=== PATIENT | male | born 1965 | race Caucasian/White ===

== ENCOUNTER 2019-06-07 12:21 | Inpatient (IN) | payer OTHER ==
[~2019-06-07] VITALS: Ht 175.3 cm; Wt 86.2 kg
--- NOTE | 2019-06-07 12:45 | NUR ---
DROPPED OFF BY FRIEND ACROSS THE STREET. 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 IT'S ON AND OFF. SOMETIMES IT GETS BETTER". TO ER BED 9, HOOKED TO MONITOR, CHANGED TO LSADE GOWDeedee, PROVIDED W WARM BLANKET, AWAITING MD VALERIO.
[2019-06-07 13:24] LABS: BASOPHILS # (AUTO) 0.1 /CMM (0.0-0.2); EOSINOPHILS % (AUTO) 1.2 % (0.0-6.0); HEMATOCRIT 45 % (39-51); HEMOGLOBIN 14.5 g/dL (13.5-17.5); LYMPHOCYTES # (AUTO) 1.8 /CMM (0.8-4.8); LYMPHOCYTES % (AUTO) 26.8 % (20.0-44.0); MEAN CORPUSCULAR HGB CONC 32 g/dl (31.0-36.0); MEAN CORPUSCULAR VOLUME 93 fL (80-96); MONOCYTES # (AUTO) 0.7 /CMM (0.1-1.30); MONOCYTES % (AUTO) 11.2 % (2.0-12.0); NEUTROPHILS % (AUTO) 59.8 % (43.0-81.0); PLATELET COUNT (AUTO) 214 /CMM (150-450); RED BLOOD CELL COUNT(AUTO) 4.81 MIL/uL (4.5-6.0); WHITE BLOOD COUNT (AUTO) 6.6 K/uL (4.3-11.0)
[2019-06-07] MEDS ORDERED: LISI-603 PO (13:28)
[2019-06-07] MEDS ORDERED: CARV6.252 PO (13:28)
[2019-06-07] MEDS ORDERED: FURO20TA4 PO (13:28)
[2019-06-07] MEDS ORDERED: ASPI-605 PO (13:28)
[2019-06-07] MEDS ORDERED: ACET-907 PO (13:28)
[2019-06-07] MEDS ORDERED: POTA10CA43 PO (13:28)
[2019-06-07] MEDS ORDERED: VANCOMYCIN 1 GM in IV D5W 250 ML IV ONE (13:30)
[2019-06-07] MEDS ORDERED: PIPERACILLIN /TAZOBACTAM 3.375 G in IV D5W 50 ML IV ONE (13:30)
[2019-06-07 13:32] LABS: CALCIUM, SERUM 8.1 mg/dL (8.5-10.1); CARBON DIOXIDE 26 mmol/L (21-32); CHLORIDE 96 mmol/L (98-107); CREATININE 1.8 mg/dL (0.6-1.3); GLUCOSE 82 mg/dL (74-106); POTASSIUM 4.1 mmol/L (3.5-5.1); SODIUM SERUM 131 mmol/L (136-145); UREA NITROGEN, BLOOD 21 mg/dL (7-18)
[2019-06-07 13:46] LABS: ALANINE AMINOTRANSFERASE 26 U/L (12-78); ALBUMIN 2.6 g/dL (3.4-5.0); ALKALINE PHOSPHATASE 147 U/L (46-116); ASPARTATE AMINOTRANSFERASE 33 U/L (15-37); B-TYPE NATRIURETIC PEPTIDE 4188 PG/ML (0-125); BILIRUBIN,DIRECT 0.8 mg/dL (0.0-0.2); BILIRUBIN,TOTAL 1.3 mg/dL (0.2-1.0); TOTAL PROTEIN, SERUM 7.3 g/dL (6.4-8.2)
[2019-06-07] MEDS ORDERED: PIPERACILLIN /TAZOBACTAM 3.375 G VIAL IV ONE (13:46)
[2019-06-07] MEDS ORDERED: VANCOMYCIN 1 GM VIAL ONE (13:46)
--- NOTE | 2019-06-07 14:08 | NUR ---
CALLED [facility], SUBMITTED MOVE SHEET TO ADMITTING, AND CALLED FOR TELE BED.
--- NOTE | 2019-06-07 14:36 | NUR ---
BED ASSIGNED TO 315-1.
--- NOTE | 2019-06-07 15:31 | NUR ---
REPORT GIVEN TO RUDOLPH FIGUEROA
[2019-06-07] MEDS ORDERED: HYDROCODONE/APAP 5/325MG 1 EACH TABLET PO PRN (16:00)
[2019-06-07] MEDS ORDERED: MAG HYDROX/AL HYDROX/SIMETH 30 ML UDC PO PRN (16:00)
[2019-06-07] MEDS ORDERED: MAGNESIUM HYDROXIDE 30 ML UDC PO PRN (16:00)
[2019-06-07] MEDS ORDERED: ONDANSETRON HCL/PF 4 MG/2 ML VIAL IVP PRN (16:00)
[2019-06-07] MEDS ORDERED: ZOLPIDEM TARTRATE 5 MG TABLET PO PRN (16:00)
[2019-06-07] MEDS ORDERED: FEE PK DOSING 1 MIN EA MC ONE (17:34)
--- NOTE | 2019-06-07 17:48 | NUR ---
TRANSFERRED TO TELE UNIT BY RN AND TECH
[2019-06-07 18:20] VITALS: BP 108/75
[2019-06-07] MEDS: MORPHINE SULFATE INJ 2 MG/ML DISP.SYRIN IV PRN ×2 (18:20→18:21)
--- NOTE | 2019-06-07 18:20 | NUR ---
EMPLOYEE REPRESENTATIVE OPENING NOTES RECEIVED PATIENT VIA GURNEY, ALERT AND ORIENTED X4. HOB ELEVATED, NO SOB. C/O PAIN TO BLE. LEFT AC # 20 INTACT AND PATENT. ORDERS RECEIVED FROM YONIS STEARNS CARRIED OUT. ON TELE MONITORING SINUS TACH WITH PVC HR: 100, B/P 108/75, RR: 22 SPO2 98% IN ROOM AIR T: 98.4. ORIENTED PATIENT TO ROOM, UNIT AND CALL LIGHT. BED IN LOWEST POSITION, LOCKED. BED ALARM ON. CALL LIGHT WITHIN REACH. IN NO APPARENT DISTRESS AT THIS TIME. ENDORSED TO ONCOMING SHIFT.
--- NOTE | 2019-06-07 18:21 | NUR ---
MS RN NOTES C/O PAIN MORPHINE DRAWN UP, BUT PATIENT CHANGED HIS MIND. MEDICATION NOT GIVEN AND WASTED MEDICATION.
[2019-06-07] MEDS: ACETAMINOPHEN 325 MG TABLET PO PRN (18:29)
[2019-06-07] MEDS: FUROSEMIDE 40 MG/4 ML VIAL IV SCH (18:29)
[2019-06-07] MEDS: CARVEDILOL 6.25 MG TABLET PO SCH (18:30)
--- NOTE | 2019-06-07 19:34 | NUR ---
COMPRESSOR STATIONS SUPERINTENDENT OPENING NOTE RECEIVED PATIENT IN BED. A/O X4. CURRENTLY TOLERATING ROOM AIR. RESPIRATIONS ARE EVEN AND UNLABORED. NO S/S SOB NOTED. DENIES PAIN AT THIS TIME. EXTERNAL TELE MONITOR READS ST WITH FREQUENT PVC HR 105. IN NO APPARENT DISTRESS. IV ACCESS IN LAC#20 PATENT AND SALINE LOCKED. BED IS LOW AND LOCKED, HOB ELEVATED IN SEMI FOWLERS, SIDE RIALS UP X2. CALL LIGHT WITHIN REACH. WILL CONTINUE TO MONITOR.
[2019-06-07 20:00] VITALS: BP 103/80
[2019-06-07] MEDS: PIPERACILLIN /TAZOBACTAM 2.25 G in IV D5W 50 ML IV SCH (20:05)
[2019-06-07] MEDS ORDERED: HEPARIN SODIUM, PORCINE 5000 UNITS/1 ML VIAL SQ SCH (21:00)
[2019-06-07] MEDS ORDERED: CHOL200026 PO (22:38)
[2019-06-07] MEDS ORDERED: POTA-10 PO (22:57)
[2019-06-07] MEDS ORDERED: SULF1TAB48 PO (22:57)
[2019-06-07] MEDS ORDERED: FURO40TA5 PO (22:57)
[2019-06-07] MEDS ORDERED: ATOR40TA PO (22:57)
[2019-06-07] MEDS ORDERED: TRAM50TA2 PO (22:57)
[2019-06-07] MEDS ORDERED: BICT1TAB PO (22:57)
[2019-06-07] MEDS ORDERED: SIMV-46 PO (22:57)
[2019-06-07] MEDS ORDERED: IBUP-1955 PO (22:57)
[2019-06-07] MEDS ORDERED: DIAZ5TAB4 PO (22:57)
[2019-06-07] MEDS ORDERED: cla (22:58)
[2019-06-07] MEDS ORDERED: RIFA550T PO (22:58)
[2019-06-07] MEDS ORDERED: CALC200T29 PO (22:58)
[2019-06-08] VITALS: BP 119/51
[2019-06-08] MEDS: ACETAMINOPHEN 325 MG TABLET PO PRN (00:44)
--- NOTE | 2019-06-08 00:44 | NUR ---
LINING PRESSER NOTE ADMINISTERED PRN TYLENOL 650MG FOR PAIN IN BOTH FEET. WILL CONTINUE TO MONITOR.
[2019-06-08] MEDS: PIPERACILLIN /TAZOBACTAM 2.25 G in IV D5W 50 ML IV SCH ×2 (01:20→08:15)
[2019-06-08] MEDS ORDERED: VANCOMYCIN 1 GM in IV D5W 250 ML IV SCH (02:00)
--- NOTE | 2019-06-08 02:53 | NUR ---
TRANSFER SPECIALIST NOTE ADMINISTERED PRN NORCO 5/325 FOR PAIN 5/10 IN BILATERAL LOWER EXTREMITIES. WILL CONTINUE TO MONITOR.
[2019-06-08 04:00] VITALS: BP 109/47
[2019-06-08 04:48] VITALS: BP 109/47
--- NOTE | 2019-06-08 06:10 | NUR ---
TUFTING MACHINE FIXER CLOSING NOTE PATIENT IN BED. A/O X4. REMAINS TOLERATING ROOM AIR. RESPIRATIONS ARE EVEN AND UNLABORED. NO SOB NOTED. MANAGED PAIN WITH TYLENOL 650MG AND NORCO 5/325. EXTERNAL TELE MONITOR READS SR WITH PVC HR 95. NO APPARENT DISTRESS. IV ACCESS MAINTAINED IN LAC#20 PATENT AND SALINE LOCKED. BED IS LOW AND LOCKED, HOB FLAT, SIDE RIALS UP X2. CALL LIGHT WITHIN REACH. WILL ENDORSE TO NEXT SHIFT.
[2019-06-08 07:19] LABS: BASOPHILS # (AUTO) 0.1 /CMM (0.0-0.2); BASOPHILS % (AUTO) 0.9 % (0.0-2.0); EOSINOPHILS % (AUTO) 1.1 % (0.0-6.0); HEMATOCRIT 40 % (39-51); HEMOGLOBIN 12.9 g/dL (13.5-17.5); LYMPHOCYTES # (AUTO) 2.1 /CMM (0.8-4.8); LYMPHOCYTES % (AUTO) 31.2 % (20.0-44.0); MEAN CORPUSCULAR HGB CONC 33 g/dl (31.0-36.0); MEAN CORPUSCULAR VOLUME 92 fL (80-96); MONOCYTES # (AUTO) 0.8 /CMM (0.1-1.30); MONOCYTES % (AUTO) 11.5 % (2.0-12.0); NEUTROPHILS # (AUTO) 3.7 /CMM (1.8-8.9); NEUTROPHILS % (AUTO) 55.3 % (43.0-81.0); PLATELET COUNT (AUTO) 211 /CMM (150-450); WHITE BLOOD COUNT (AUTO) 6.7 K/uL (4.3-11.0)
--- NOTE | 2019-06-08 07:30 | NUR ---
MS/RN Opening note Patient received resting in bed, A/O x4n showing no signs of acute distress or SOB, saturating >95% on RA. IV line is clean and patent. Skin assessed, BLE edema and LLE blister noted. Urinal has 350cc with clear yellow urine. I asked the patient if he was in pain and he stated he was in pain in his feet and I offered the patient if he wanted any pain medication and he stated that he does not want to take anything for pain due to a history of substance abuse and that he will be okay. Patient has no other concerns at this time. Bed is in lowest position, side rails x3 in upright position, call light is within reach and patient is aware of how to call for assistance when needed. Will continue with plan of care.
[2019-06-08 07:38] LABS: ALBUMIN 2.3 g/dL (3.4-5.0); BILIRUBIN,TOTAL 1.6 mg/dL (0.2-1.0); CALCIUM, SERUM 7.9 mg/dL (8.5-10.1); CREATININE 1.5 mg/dL (0.6-1.3); MAGNESIUM 1.8 mg/dL (1.8-2.4); PHOSPHORUS 3.2 mg/dL (2.5-4.9); POTASSIUM 3.9 mmol/L (3.5-5.1); TOTAL PROTEIN, SERUM 6.3 g/dL (6.4-8.2)
[2019-06-08] MEDS: FUROSEMIDE 40 MG/4 ML VIAL IV SCH ×2 (08:16→12:22)
[2019-06-08] MEDS ORDERED: ENOXAPARIN SODIUM 40 MG/0.4 ML DISP.SYRIN SQ SCH (09:00)
[2019-06-08] MEDS ORDERED: ASPIRIN EC 81 MG TABLET.DR PO SCH (09:00)
[2019-06-08] MEDS ORDERED: LISINOPRIL (20MG) 20 MG TABLET PO SCH (09:00)
[2019-06-08 09:22] VITALS: BP 106/72
[2019-06-08] MEDS: CARVEDILOL 6.25 MG TABLET PO SCH (09:22)
--- NOTE | 2019-06-08 10:00 | NUR ---
MS/RN note Patient asked if he can be DC after his wound care consult. I told the patient that he is not stable to leave and it is up to the doctor to decide if he can be DC. I asked the patient why he wants to be DC and he stated that, "I missed [address] and I am scared that I am going to go to care home." Patient appears very anxious. I contacted the doctor and MD said, "patient is not stable for DC, he needs wound treatment and antibiotics." I relayed the information to the patient and and he still insisted on leaving. I told him, the risks and that it is his choice if he wants to leave against medical advice. RN Yane also came into the room and explained to the patient a second time the risks of leaving. Patient stated he still wants to leave. I told the patient that I will get the paperwork ready.
--- NOTE | 2019-06-08 11:01 | NUR ---
WOUND CARE CONSULT: PT PRESENTS WITH CRUSTED WOUND TO LEFT DORSAL FOOT, PRESENT ON ADMISSION. RECOMMEND DPM CONSULT. DR LIAO NOTIFIED OF CONSULT REQUEST. CURRENT DAGO SCORE IS 19. MD IN AGREEMENT WITH PLAN OF CARE.
--- NOTE | 2019-06-08 14:00 | NUR ---
MS/RN note Patient signed AMA paperwork, belongings list signed, home meds picked up from pharmacy and given to patient. All belongings with patient.
--- NOTE | 2019-06-08 14:40 | NUR ---
MS/RN note Patient left the unit ambulatory, refused to take wheelchair after being offered. Patient stated, "that wheelchair came from the AIDS clinic across the street, it's not mine." We insisted the patient take it with him, patient refused. Patient refused to wear shoes or socks after being offered both. MEDICAL TRANSCRIPTION EDITOR and I escorted the patient down the elevator. Patient got into a taxi. Once we went back to the room, we found the patient's shoes, debit card, blanket, and wheelchair that he got from the AIDS clinic. Called the patient back on his cellphone and he stated his partner will come to pick it up.
--- NOTE | 2019-06-08 15:30 | NUR ---
MS/RN note Patient's partner Paresh came to picker patient's debit card, shoes, blanket and wheelchair. Partner stated, "Doug has been in and out of the hospital for the past 6 months, he is so stubborn and gets very anxious. Thank you for taking care of him while he is here, He will probably be back." Partner was also sent with a copy of the AMA form.
[2019-06-09] MEDS ORDERED: SILVER SULFADIAZINE 50 GM JAR TP SCH (09:00)
== END 2019-06-08 14:40 | disposition left against medical advice (07) | DRG 139 ==
LOC: ER 12:21 → TELE 17:18 → MED 06-08 10:19
PROVIDERS: ADMIT Nurse Practitioner Acute Care; ATTEND Nurse Practitioner Acute Care
DX: J15.9 Unspecified bacterial pneumonia (principal); N17.0 Acute kidney failure with tubular necrosis; I50.31 Acute diastolic (congestive) heart failure; E44.0 Moderate protein-calorie malnutrition; E87.2 Acidosis; L03.116 Cellulitis of left lower limb; E87.1 Hypo-osmolality and hyponatremia; E88.09 Other disorders of plasma-protein metabolism, not elsewhere classified; I42.0 Dilated cardiomyopathy; F17.210 Nicotine dependence, cigarettes, uncomplicated; S90.822A Blister (nonthermal), left foot, initial encounter; X58.XXXA Exposure to other specified factors, initial encounter; Y93.9 Activity, unspecified; Y92.009 Unspecified place in unspecified non-institutional (private) residence as the place of occurrence of the external cause; E80.6 Other disorders of bilirubin metabolism; I25.2 Old myocardial infarction
CPT/HCPCS: 36415; 71045-TC; 80048-TC; 80053-TC; 80061-TC; 80076-TC; 83605-TC; 83735-TC; 83880; 84100-TC; 84484-TC; 85025-TC; 87040-TC; 87081-TC; 93307-TC; 93926-TC; 93970-TC; 97116-TC; 97530-TC; G0378; J1644; J1650; J1940; J2270; J2543; J3370; J7050; J7060

== ENCOUNTER 2019-09-03 14:34 | Emergency (ER) | payer OTHER ==
[~2019-09-03] VITALS: Ht 182.9 cm; Wt 59.0 kg
[~2019-09-03 14:34] MED LIST: ACET-907 PO; ASPI-605 PO; ATOR40TA PO; BICT1TAB PO; CALC200T29 PO; CARV6.252 PO; CHOL200026 PO; DIAZ5TAB4 PO; FURO20TA4 PO; FURO40TA5 PO; IBUP-1955 PO; LISI-603 PO; POTA-10 PO; POTA10CA43 PO; RIFA550T PO; SIMV-46 PO; SULF1TAB48 PO; TRAM50TA2 PO; cla
--- NOTE | 2019-09-03 14:34 | NUR ---
AT 1430 FAMILY CALLED STAFF IN ER ADMITTING. STAFF WENT OUTSIDE AND FOUND PATIENT UNRESPONSIVE AND PULSELESS TRANSFERRED TO A BED AND CPR STARTED. CALLED CODE BLUE. PATIENT WITH NO PULSE, NO BLOOD PRESSURE, NO SPONTANEOUS BREATHING. IO 25mm INSERTED BY JEET LORENZO RN ON RIGHT LOWER EXTREMITY. PACER PADS ATTACHED TO PATIENT.
--- NOTE | 2019-09-03 14:38 | NUR ---
IV LINE INSERTED ON NATASHA G18.
--- NOTE | 2019-09-03 14:43 | NUR ---
INTUBATED WITH ET TUBE SIZE OF 7.5, 23CM ON THE LIP. CARLOS. CHEST RISE.
--- NOTE | 2019-09-03 14:44 | NUR ---
DR. MELVIN VILLEGAS AT BEDSIDE, INSERTED A CENTRAL LINE ON RIGHT FEMORAL.
--- NOTE | 2019-09-03 14:50 | NUR ---
PATIENT SHOCKED 3 TIMES, NO ROSC. PATIENT WAS V. FIB ON THE MONITOR. CONTINUED WITH MEDICATIONS AND THE CPR.
--- NOTE | 2019-09-03 14:55 | NUR ---
CODE WAS UNSUCCESSFUL. UNABLE TO OBTAIN A PULSE, DR. FAUSTIN ANNOUNCED TIME OF 1455. FAMILY WAS IN THE WAITING ROOM AND SPOKE TO DR. FAUSTIN.
[2019-09-03 14:56] VITALS: BP 0/0
--- NOTE | 2019-09-03 15:53 | NUR ---
CALLED [facility], SPOKE TO VICENTA REFERRAL NUMBER: [phone]
--- NOTE | 2019-09-03 16:00 | NUR ---
FOR MEDICATIONS ADMINISTERED DURING THE CODE, REFER TO THE CODE BLUE SHEET.
--- NOTE | 2019-09-03 16:04 | NUR ---
NASOPHARYNGEAL SWAB SENT TO LABORATORY FOR COVID TESTING.
--- NOTE | 2019-09-03 16:18 | NUR ---
POST MORTEM CARE PROVIDED. PATIENT TRANSFERRED TO [facility]. NURSING BLEACH ANALYST AMARIS MCMAHON.
== END 2019-09-03 16:19 ==
LOC: ER 14:35
DX: I46.9 Cardiac arrest, cause unspecified (principal); Z79.899 Other long term (current) drug therapy; Z79.82 Long term (current) use of aspirin
CPT/HCPCS: 31500; 36415; 92950; 99285; C1751